=== PATIENT | male | born 2000 | race Two or more races ===

== ENCOUNTER 2023-12-15 08:46 | Emergency (ER) | payer OTHER ==
[~2023-12-15] VITALS: Ht 172.7 cm; Wt 70.3 kg
--- NOTE | 2023-12-15 08:57 | NUR ---
Dr [email or web address], medical screening exam in progress
[2023-12-15] MEDS ORDERED: IBUP-1955 PO (09:12)
[2023-12-15] MEDS ORDERED: CYCL5TAB PO (09:12)
[2023-12-15] MEDS ORDERED: LIDO30AD10 TP (09:12)
[2023-12-15 09:14] VITALS: BP 128/78; O2SAT 98
--- NOTE | 2023-12-15 09:18 | NUR ---
Patient discharged to home in stable condition. Written and verbal after care instructions given. Patient verbalizes understanding of instructions. Stressed follow up or return to ER for worsening s/s. Pt encourage to take meds with food and take as directed
== END 2023-12-15 09:19 | disposition home or self-care (01) ==
LOC: ER 08:46
DX: S16.1XXA Strain of muscle, fascia and tendon at neck level, initial encounter (principal); V89.2XXA Person injured in unspecified motor-vehicle accident, traffic, initial encounter; Y93.89 Activity, other specified; Y92.89 Other specified places as the place of occurrence of the external cause; Y99.8 Other external cause status
CPT/HCPCS: A4606; A4663